=== PATIENT | male | born 1980 | race Caucasian/White ===

== ENCOUNTER 2017-09-07 22:35 | Emergency (ER) | payer OTHER ==
[~2017-09-07] VITALS: Ht 172.7 cm; Wt 57.5 kg
[2017-09-07 22:48] VITALS: BP 127/5
== END 2017-09-08 00:48 | disposition left against medical advice (07) ==
LOC: ER 22:36
DX: S61.219A Laceration without foreign body of unspecified finger without damage to nail, initial encounter (principal); Z53.21 Procedure and treatment not carried out due to patient leaving prior to being seen by health care provider